=== PATIENT | female | born 1950 | race Two or more races ===

== ENCOUNTER 2016-07-11 23:33 | Emergency (ER) | payer OTHER, MEDICARE ==
[2016-07-11 23:44] VITALS: RESP 16; O2SAT 95
--- NOTE | 2016-07-12 00:16 | EDPHY ---
H & P Stated Complaint: intermittent pain btwn shoulder blades since Mon, nausea, emesis x1, tired Time Seen by Provider: 07/11/16 23:54 HPI/ROS: HPI The patient presents with cough which is mild and has been present for the last 2 days, it is dry and associated with a very mild sore throat. She today has not had an appetite but is able to tolerate fluids by mouth, drinking mostly Gatorade and water. She is feeling somewhat weak she says because of her lack of appetite. She did have just 1 episode of vomiting today. She thinks her hands and feet feel cold, however she does not have a fever. She reports muscle soreness throughout her shoulders. She was at a [place] a few days ago and is worried that she caught some sort of illness there. She does not have any chest pain or shortness of breath. She has no sick contacts that she is aware of. She did have a flu shot this season.. REVIEW OF SYSTEMS Constitutional: No fever, no chills. Eyes: No discharge. ENT: No sore throat. Cardiovascular: No chest pain, no palpitations. Respiratory: + cough, no shortness of breath. Gastrointestinal: No abdominal pain, no vomiting. Genitourinary: No hematuria. Musculoskeletal: No back pain. Skin: No rashes. Neurological: No headache. PMHx: Healthy Soc Hx: Lives at home with her PHYSICAL General Appearance: Alert, no distress Eyes: Pupils equal and round no pallor or injection ENT, Mouth: Mucous membranes moist, posterior pharynx is slightly erythematous Respiratory: There are no retractions, lungs are clear to auscultation Cardiovascular: Regular rate and rhythm Gastrointestinal: Abdomen is soft and non-tender, no masses, bowel sounds normal Neurological: A&O, moves all extremities Skin: Warm and dry, no rashes Musculoskeletal: Neck is supple non tender Extremities: symmetrical, full range of motion Psychiatric: Patient is oriented X 3, there is no agitation Source: Patient Exam Limitations: No limitations - Personal History Current Tetanus/Diphtheria Vaccine: Yes Current Tetanus Diphtheria and Acellular Pertussis (TDAP): Yes - Medical/Surgical History Hx Asthma: No Hx Chronic Respiratory Disease: No Hx Diabetes: No Hx Cardiac Disease: No Hx Renal Disease: No Hx Cirrhosis: No Hx Alcoholism: No Hx HIV/AIDS: No Hx Splenectomy or Spleen Trauma: No Other PMH: denies - Social History Smoking Status: Never smoked Constitutional: Initial Vital Signs Temperature (C) 37.5 C 07/11/16 23:38 Heart Rate 93 07/11/16 23:38 Respiratory Rate 16 07/11/16 23:38 Blood Pressure 110/86 H 07/11/16 23:38 O2 Sat (%) 95 07/11/16 23:38 O2 Delivery Mode Room Air Allergies/Adverse Reactions: Penicillins Allergy (Verified 07/11/16 23:44) Unknown Home Medications: Medication Instructions Recorded Oseltamivir Phosphate [Tamiflu 75 75 mg PO BID #10 cap 07/12/16 mg (*)] Medical Decision Making Differential Diagnosis: This is a 66-year-old healthy female who presents from home with 2 days of mild cough, sore throat, decreased appetite, shoulder pain that sounds like myalgias with a single episode of vomiting. On exam, she is very well-appearing, she has normal vital signs. Her lungs sound clear and her exam is unremarkable. Differential diagnosis includes viral syndrome, influenza, less likely pneumonia. In the emergency room, the patient had a rapid flu test which was positive for flu B. Given symptoms are slightly less than 48 hours, I will prescribe her Tamiflu. I do not think she has a pneumonia, lung sounds are clear. I have advised her to monitor her symptoms at home, take ibuprofen or Tylenol as needed. - Data Points Laboratory Results: 07/12/16 00:17 Influenza Typ A,B (DFA) POSITIVE FOR FLU B H (NEGATIVE) Medications Given: Discontinued Medications Oseltamivir Phosphate (Tamiflu) 75 mg PO EDNOW ONE Stop: 07/12/16 00:36 Last Admin: 07/12/16 00:56 Dose: 75 mg Departure - Departure Disposition: Home, Routine, Self-Care Condition: Good Instructions: Viral Syndrome (ED) Referrals: Akanksha Hopper MD [Primary Care Provider] - As per Instructions Prescriptions: Oseltamivir Phosphate [Tamiflu 75 mg (*)] 75 mg PO BID #10 cap
[2016-07-12] MEDS ORDERED: OSELTAMIVIR PHOSPHATE 75 MG CAP PO ONE (00:35)
[2016-07-12 00:58] VITALS: BP 136/70; PULSE 75; TEMP 100
== END 2016-07-12 00:56 | disposition home or self-care (01) ==
DX: J10.1 Influenza due to other identified influenza virus with other respiratory manifestations (principal)

== ENCOUNTER → 2016-11-06 | Outpatient (CLI) | payer OTHER, MEDICARE | LOC: FIMAGING 14:51 | PROVIDERS: ATTEND Internal Medicine | DX: Z12.31 Encounter for screening mammogram for malignant neoplasm of breast (principal) | CPT/HCPCS: G0202 ==

== ENCOUNTER 2016-12-29 11:03 | Emergency (ER) | payer OTHER, MEDICARE ==
--- NOTE | 2016-12-29 11:12 | EDPHY ---
H & P Stated Complaint: cough, weakness, headache, no appetite starting Saturday Time Seen by Provider: 12/29/16 11:11 HPI/ROS: CHIEF COMPLAINT: Cough, loss appetite HISTORY OF PRESENT ILLNESS: The patient presents to the ED with a cough which has been present since Saturday. She endorses symptoms of a decreased appetite. She has had subjective chills in a very mild headache. The patient denies any complaints of dysuria, abdominal pain, vomiting or diarrhea. The patient states she has no significant past medical history. She takes no prescription medications. She has no additional acute complaints. REVIEW OF SYSTEMS: A comprehensive 10 point review of systems is otherwise negative aside from elements mentioned in the history of present illness. Source: Patient Exam Limitations: No limitations - Personal History Current Tetanus/Diphtheria Vaccine: Unsure Current Tetanus Diphtheria and Acellular Pertussis (TDAP): Unsure - Medical/Surgical History Hx Asthma: No Hx Chronic Respiratory Disease: No Hx Diabetes: No Hx Cardiac Disease: No Hx Renal Disease: No Hx Cirrhosis: No Hx Alcoholism: No Hx HIV/AIDS: No Hx Splenectomy or Spleen Trauma: No Other PMH: denies - Social History Smoking Status: Never smoked - Physical Exam Exam: General Appearance: Alert, no distress Eyes: Pupils equal and round no pallor or injection ENT, Mouth: Mucous membranes moist Respiratory: Scant expiratory wheezing, lungs otherwise clear to auscultation Cardiovascular: Regular rate and rhythm Gastrointestinal: Abdomen is soft and nontender, no masses, bowel sounds normal Neurological: A&O, normal motor function, normal sensory exam, normal cranial nerves Skin: Warm and dry, no rashes Musculoskeletal: Neck is supple nontender Extremities: symmetrical, full range of motion Constitutional: Initial Vital Signs Temperature (C) 36.6 C 12/29/16 11:07 Heart Rate 106 H 12/29/16 11:07 Respiratory Rate 20 12/29/16 11:07 Blood Pressure 91/72 L 12/29/16 11:07 O2 Sat (%) 93 12/29/16 11:07 O2 Delivery Mode Nasal Cannula O2 (L/minute) 2 Allergies/Adverse Reactions: Penicillins Allergy (Verified 12/29/16 11:06) Unknown Home Medications: Medication Instructions Recorded Albuterol [Ventolin Hfa Inhaler] 2 puffs IH QID PRN #1 mdi 12/29/16 Medical Decision Making - Diagnostics EKG Interpretation: EKG: Complete interpretation has been separately recorded in the [facility] archive. Summary impression: Sinus, rate 100, no ST segment elevation or depression Imaging Results: Imaging Impressions Chest X-Ray 12/29/16 11:53 Impression: Central bronchitis, otherwise negative.. ED Course/Re-evaluation: The patient presents to the ED with a one-week history of cough. She has decreased appetite as well as malaise. She has had subjective fever and chills. Her chest x-ray demonstrates no evidence of an obvious pneumonia. Her EKG demonstrates no evidence of ischemia. Patient did have mild expiratory wheezing on exam consistent with bronchitis. The patient is otherwise well- appearing. She will be provided a prescription for an albuterol inhaler. She is advised to return to the ED for markedly worsening symptoms including severe dyspnea, chest pain, fever or other acute complaints. The patient should follow up with her primary care provider for recheck in the next 2-3 days. She is discharged home with customary aftercare and return precautions. Differential Diagnosis: Differential diagnosis considered includes asthma, bronchitis, pneumonia - Data Points Medications Given: Discontinued Medications Albuterol (Proventil Neb) 3 ml EDNOW ONE Stop: 12/29/16 11:46 Last Admin: 12/29/16 11:50 Dose: 3 ml Departure - Departure Disposition: Home, Routine, Self-Care Clinical Impression: Acute bronchitis Condition: Good Instructions: Acute Bronchitis (ED) Additional Instructions: 1. Please use albuterol inhaler up to every 4 hours as needed for cough and shortness of breath. 2. You may use [id number] decongestants such as Robitussin for management of your symptoms. 3. Return to the ED for markedly worsening symptoms, fever, difficulty breathing or other acute concerns. 4. Please schedule a follow-up appointment with your primary care provider Dr. Hopper for recheck in the next week as needed. Referrals: Akanksha Hopper MD [Primary Care Provider] - As per Instructions
[2016-12-29] MEDS ORDERED: ALBUTEROL 3 ML DEYVIAL IH ONE (11:45)
[2016-12-29 13:19] VITALS: BP 95/76; PULSE 94; RESP 16; TEMP 97.7; O2SAT 91
--- NOTE | 2016-12-29 14:57 | CPEKG ---
Heart Rate: 101 RR Interval: 594 P-R Interval: 144 QRSD Interval: 82 QT Interval: 328 QTC Interval: 426 P [place]: 71 QRS [place]: 37 T Wave [place]: -64 EKG Severity - ABNORMAL ECG - EKG Impression: SINUS TACHYCARDIA Electronically Signed By: Clement Aponte 29-Dec-2016 15:29:19
== END 2016-12-29 13:22 | disposition home or self-care (01) ==
DX: J20.9 Acute bronchitis, unspecified (principal)

== ENCOUNTER → 2017-11-08 | Outpatient (CLI) | payer OTHER, MEDICARE | LOC: FIMAGING 14:30 | PROVIDERS: ATTEND Internal Medicine | DX: Z12.31 Encounter for screening mammogram for malignant neoplasm of breast (principal); Z80.3 Family history of malignant neoplasm of breast ==